=== PATIENT | male | born 1950 | race Two or more races ===

== ENCOUNTER 2018-02-23 15:14 | Inpatient (IN) | payer MEDICARE ==
--- NOTE | 2018-02-23 15:38 | ED Physician Chart ---
ED Chief Complaint/HPI - Patient Information Date Seen:: 02/23/18 Time Seen:: 15:25 Chief Complaint:: altered mental status History of Present Illness:: Family noted patient was not acting normally at his extended care facility. He was trying to write and what he wrote appeared to be scribbling. Accu-Chek at the facility was 32. Juice was given an patient's Accu-Chek increased of 50. Paramedics were called and patient started on a bag of D10. Repeat Accu-Chek by the paramedics was 205. Patient had a G-tube placed a few days ago at [facility] as he's been vomiting for at least the last 1 month. Historian:: EMS, Family Member Review:: Transfer documents Reviewed ED Review of Systems - Review of Systems General/Constitutional: No fever, No chills Skin: No skin lesions Head: No headache Eyes: No loss of vision ENT: No earache Neck: No neck pain Cardio Vascular: No chest pain GI: No nausea, No vomiting G/U: No dysuria Musculoskeletal: No bone or joint pain Endocrine: No polyuria Psychiatric: No prior psych history Allergic/Immuno: No urticaria Neurological: No syncope ED Past Medical History - Past Medical History Past Medical History: HTN, DM, Dyslipidemia, Other (mastoiditis; hyperlipidemia) Family History: Diabetes Melitus Social History: Other (formerly smoked marijuana and drank alcohol) Surgical History: PEG/GTube, other (mastoidectomy) Psychiatricy History: None Medication: Reviewed Family Medical History - Family Member Mother History Unknown: Yes Ethnicity: ED Physical Exam - Physical Examination General/Constitutional: Awake, Well-developed, well-nourished, Alert Other Gen/Cons comments:: Alert and oriented to correct month and year Head: Atraumatic Eyes: Lids, conjuctiva normal, PERRL Skin: Nl inspection, No rash, No skin lesions, No ecchymosis ENMT: External ears, nose nl Other ENMT comments:: Edentulous Neck: No nuchal rigidity Respiratory: Nl effort/Exclusion Other Respiratory comments:: 2 out of 4 harsh breath sounds Cardio Vascular: RRR, No murmur, gallop, rubs GI: No tenderness/rebounding/guarding, No organomegaly Extremities: Normal digits & nails Neuro/Psych: No focal deficits ED Labs/Radiology/EKG Results - Lab Results Results: Abnormal Lab Results 02/23/18 02/23/18 02/23/18 15:35 15:41 15:41 WBC 11.6 H RBC 4.93 Hgb 13.9 Hct 42.3 MCV 85.8 MCH 28.1 MCHC Differential 32.8 RDW 12.9 Plt Count 588 H MPV 6.2 Add Manual Diff YES Sodium 136 Potassium 3.3 L Chloride 96 L Carbon Dioxide 30.9 Anion Gap 12.4 BUN 19 Creatinine 1.2 Est GFR ( Amer) > 60.0 Est GFR (Non-Af Amer) > 60.0 BUN/Creatinine Ratio 15.8 Glucose 94 POC Glucose 77 Calcium 9.3 Magnesium 1.6 L Urine Source Urine Color Urine Clarity Urine pH Ur Specific [place] Urine Protein Urine Glucose (UA) Urine Ketones Urine Blood Urine Nitrate Urine Bilirubin Urine Urobilinogen Ur Leukocyte Esterase Urine RBC Urine WBC Ur Epithelial Cells Urine Bacteria 02/23/18 16:00 WBC RBC Hgb Hct MCV MCH MCHC Differential RDW Plt Count MPV Add Manual Diff Sodium Potassium Chloride Carbon Dioxide Anion Gap BUN Creatinine Est GFR ( Amer) Est GFR (Non-Af Amer) BUN/Creatinine Ratio Glucose POC Glucose Calcium Magnesium Urine Source RANDOM Urine Color YELLOW Urine Clarity CLEAR Urine pH 7.5 Ur Specific [place] 1.020 Urine Protein TRACE Urine Glucose (UA) NEGATIVE Urine Ketones NEGATIVE Urine Blood TRACE Urine Nitrate NEGATIVE Urine Bilirubin NEGATIVE Urine Urobilinogen 0.2 Ur Leukocyte Esterase NEGATIVE Urine RBC NONE SEEN Urine WBC 0-2 Ur Epithelial Cells NONE SEEN Urine Bacteria FEW - Radiology Results Results: Chest x-ray normal ED Assessment - Assessment General Assessment: Patient had a hypoglycemic reaction with his blood sugars as low as 32 so he needs admission. ED Septic Shock - . Is Septic Shock (SBP<90, OR Lactate>4 mmol\L) present?: No ED Reassessment (Disposition) - Reassessment Reassessment Condition:: Improved - Diagnosis Diagnosis:: Hypoglycemic reaction; diabetes hypokalemia; hypomagnesemia; - Patient Disposition Admitted to:: Med/Surg Spoke to:: Blanca Alejandro Admitting Medical Physician:: Blanca Alejandro Condition at Disposition:: Stable, Improved
[2018-02-23 15:47] LABS: BASOPHILE ABSOLUTE 0.1 Th/cumm (0-0.2); EOSINOPHILE ABSOLUTE 0.1 Th/cmm (0.1-0.4); HEMATOCRIT 42.3 % (41.0-60); HEMOGLOBIN 13.9 gm/dL (12-16); LYMPHOCYTE ABSOLUTE 0.5 Th/cmm (1.5-3.0); MEAN CELL VOLUME 85.8 fl (80-99); MEAN CORPUSCULAR HEMOGLOBIN 28.1 pg (27.0-31.0); MEAN CORPUSCULAR HGB CONC 32.8 pg (28.0-36.0); MEAN PLATELET VOLUME 6.2 fl; MONOCYTE ABSOLUTE 0.3 Th/cmm (0.3-1.0); NEUTROPHILE ABSOLUTE 10.6 Th/cmm (1.8-8.0); PLATELET COUNT 588 Th/cmm (150-400); RED BLOOD COUNT 4.93 Mil/cmm (3.80-5.80); RED CELL DISTRIBUTION WIDTH 12.9 % (11.5-20.0); WHITE BLOOD COUNT 11.6 Th/cmm (4.8-10.8)
[2018-02-23 16:03] LABS: ANION GAP 12.4 (7.0-16.0); BUN - UREA NITROGEN 19 mg/dL (7-25); CALCIUM SERUM 9.3 mg/dL (8.6-10.3); CARBON DIOXIDE 30.9 mEq/L (21.0-31.0); CHLORIDE 96 mEq/L (98-107); CREATININE - SERUM 1.2 mg/dL (0.7-1.3); GFR AFRICAN-AMERICAN > 60.0 ml/min (>90); GFR NON AFRICAN-AMERICAN > 60.0 ml/min; GLUCOSE 94 mg/dL (70-105); MAGNESIUM 1.6 mg/dL (1.9-2.7); POTASSIUM SERUM 3.3 mEq/L (3.5-5.1); SODIUM SERUM 136 mEq/L (136-145)
[2018-02-23 16:12] LABS: URINE SOURCE RANDOM
[2018-02-23 16:14] LABS: URINE BILIRUBIN NEGATIVE (NEGATIVE); URINE BLOOD TRACE (NEGATIVE); URINE GLUCOSE (UA) NEGATIVE (NEGATIVE); URINE KETONE NEGATIVE (NEGATIVE); URINE LEUKOCYTE ESTERASE NEGATIVE (NEGATIVE); URINE MICROSCOPIC INDICATED? YES; URINE NITRATE NEGATIVE (NEGATIVE); URINE PH 7.5 (4.6 - 8.0); URINE PROTEIN TRACE mg/dL (NEGATIVE); URINE UROBILINOGEN 0.2 E.U./dL (0.2 - 1.0)
[2018-02-23 16:30] LABS: URINE BACTERIA FEW /hpf (NONE SEEN); URINE CLARITY CLEAR (CLEAR); URINE COLOR YELLOW; URINE EPITHELIAL CELLS NONE SEEN /lpf (FEW); URINE RBC NONE SEEN /hpf (0-5); URINE WBC 0-2 /hpf (0-5)
[2018-02-23 17:02] LABS: BAND NEUTROPHILE 0 % (0-10); BASOPHIL 0 % (0-3); EOSINOPHIL 0 % (0-5); LYMPHOCYTE 5 % (20-50); MONOCYTE 3 % (2-10); NEUTROPHILS 92 % (40-80)
[2018-02-23] MEDS ORDERED: Dextrose 10% 1,000 ML IV SCH (18:36)
[2018-02-23] MEDS: INSULIN HUMAN REGULAR 100 UNITS/ML UNIT SUBQ SCH (19:53)
[2018-02-23] MEDS ORDERED: Dextrose 10% 1,000 ML IV ONE (21:06)
[2018-02-23] MEDS ORDERED: Mag Sulfate 2gm/50mL Premix 2 GM/50 ML BAG IV ONE (22:45)
[2018-02-24] MEDS: INSULIN HUMAN REGULAR 100 UNITS/ML UNIT SUBQ SCH ×2 (00:35→06:19)
[2018-02-24 06:01] LABS: MEAN CELL VOLUME 85.6 fl (80-99); MEAN CORPUSCULAR HEMOGLOBIN 28.8 pg (27.0-31.0); MEAN CORPUSCULAR HGB CONC 33.7 pg (28.0-36.0); MEAN PLATELET VOLUME 6.6 fl; RED BLOOD COUNT 3.53 Mil/cmm (3.80-5.80); RED CELL DISTRIBUTION WIDTH 13.1 % (11.5-20.0); WHITE BLOOD COUNT 14.6 Th/cmm (4.8-10.8)
[2018-02-24 06:03] LABS: HEMATOCRIT 30.2 % (41.0-60); HEMOGLOBIN 10.2 gm/dL (12-16); PLATELET COUNT 447 Th/cmm (150-400)
[2018-02-24 06:07] LABS: ANION GAP 10.2 (7.0-16.0); BUN - UREA NITROGEN 18 mg/dL (7-25); CALCIUM SERUM 8.6 mg/dL (8.6-10.3); CARBON DIOXIDE 30.9 mEq/L (21.0-31.0); CHLORIDE 98 mEq/L (98-107); CHOLESTEROL 83 mg/dL (<200); CREATININE - SERUM 1.2 mg/dL (0.7-1.3); GFR AFRICAN-AMERICAN > 60.0 ml/min (>90); GFR NON AFRICAN-AMERICAN > 60.0 ml/min; GLUCOSE 98 mg/dL (70-105); HDL -HIGH DENSITY LIPOPROTEIN 22 mg/dL (23-92); POTASSIUM SERUM 3.1 mEq/L (3.5-5.1); SODIUM SERUM 136 mEq/L (136-145); TRIGLYCERIDES 87 mg/dL (<150)
[2018-02-24] MEDS ORDERED: Dextrose 10% 1,000 ML IV SCH (07:15)
[2018-02-24 07:32] LABS: BAND NEUTROPHILE 2 % (0-10); NEUTROPHILS 84 % (40-80)
[2018-02-24 07:33] LABS: LYMPHOCYTE 12 % (20-50); MONOCYTE 2 % (2-10)
--- NOTE | 2018-02-24 08:44 | Diagnostic Imaging Report ---
Portable chest x-ray HISTORY: Cough The overall heart size appears normal. Atherosclerotic calcification seen in the aorta. No acute focal pulmonary processes. IMPRESSION: 1. No acute abnormalities 2. Atherosclerotic vascular changes
[2018-02-24] MEDS ORDERED: INSULIN ASPART SLIDING SCALE 100 UNITS/ML UNIT SUBQ SCH (10:30)
[2018-02-24] MEDS ORDERED: Acetaminophen 500 MG TAB GT PRN (15:12)
[2018-02-24] MEDS ORDERED: Potassium Chloride Elixir 20 mEq /15 mL UDC GT ONE (15:23)
[2018-02-24] MEDS: INSULIN ASPART SLIDING SCALE 100 UNITS/ML UNIT SUBQ SCH ×2 (16:29→21:58)
[2018-02-24] MEDS: Dextrose 5% 1,000 ML IV SCH (16:34)
[2018-02-25] MEDS: INSULIN ASPART SLIDING SCALE 100 UNITS/ML UNIT SUBQ SCH ×4 (04:47→20:53)
[2018-02-25 05:46] LABS: % BASOPHILS 0.4 % (0.0-2.0); % EOSINOPHILS 1.1 % (0.0-5.0); % LYMPHOCYTES 9.7 % (20.0-50.0); % MONOCYTES 4.4 % (2.0-10.0); % NEUTROPHILS 84.4 % (40.0-80.0); EOSINOPHILE ABSOLUTE 0.1 Th/cmm (0.1-0.4); HEMATOCRIT 29.9 % (41.0-60); HEMOGLOBIN 9.8 gm/dL (12-16); LYMPHOCYTE ABSOLUTE 1.1 Th/cmm (1.5-3.0); MEAN CELL VOLUME 84.9 fl (80-99); MEAN CORPUSCULAR HEMOGLOBIN 27.9 pg (27.0-31.0); MEAN CORPUSCULAR HGB CONC 32.8 pg (28.0-36.0); MEAN PLATELET VOLUME 6.5 fl; MONOCYTE ABSOLUTE 0.5 Th/cmm (0.3-1.0); NEUTROPHILE ABSOLUTE 9.8 Th/cmm (1.8-8.0); PLATELET COUNT 483 Th/cmm (150-400); RED BLOOD COUNT 3.52 Mil/cmm (3.80-5.80); RED CELL DISTRIBUTION WIDTH 12.6 % (11.5-20.0); WHITE BLOOD COUNT 11.5 Th/cmm (4.8-10.8)
[2018-02-25 06:13] LABS: ALB/GLOB RATIO 0.9 (1.0-1.8); ALBUMIN 2.6 gm/dL (4.2-5.5); ALKALINE PHOSPHATASE 116 U/L (34-104); ANION GAP 11.5 (7.0-16.0); BILIRUBIN,TOTAL 0.6 mg/dL (0.3-1.0); BUN - UREA NITROGEN 19 mg/dL (7-25); CALCIUM SERUM 8.3 mg/dL (8.6-10.3); CARBON DIOXIDE 30.2 mEq/L (21.0-31.0); CHLORIDE 98 mEq/L (98-107); CREATININE - SERUM 1.3 mg/dL (0.7-1.3); GFR AFRICAN-AMERICAN > 60.0 ml/min (>90); GFR NON AFRICAN-AMERICAN 58.5 ml/min; GLUCOSE 130 mg/dL (70-105); MAGNESIUM 1.8 mg/dL (1.9-2.7); POTASSIUM SERUM 3.7 mEq/L (3.5-5.1); SGOT 16 U/L (13-39); SGPT/ALT 19 U/L (7-52); SODIUM SERUM 136 mEq/L (136-145); TOTAL PROTEIN,SERUM 5.5 gm/dL (6.0-8.3)
[2018-02-25] MEDS: Vitamin B Complex w/Vitamin C Tab GT SCH (08:56)
--- NOTE | 2018-02-25 10:35 | Diagnostic Imaging Report ---
Cervical spine (5 views) HISTORY: Pain Views are limited due to difficulty in patient positioning. Suboptimal delineation and visualization of C6 and C7. Alignment appears to be normal. There appears to be narrowing the C5-6 disc space. The C6-7 interspace is not well seen. Spur formation noted off the anterior margin of the body of C5. Suboptimal delineation the neural foramina due to difficulty in positioning. Vascular calcification noted. IMPRESSION 1. Suboptimal/limited exam particularly at the C5-6 and C6-7 levels 2. Degenerative changes 3. No definite acute abnormalities 4. Atherosclerotic vascular changes
[2018-02-25] MEDS: Dextrose 5% 1,000 ML IV SCH (15:59)
--- NOTE | 2018-02-25 22:38 | History & Physical ---
ADMIT DATE: 02/23/2018 REASON FOR ADMISSION: Hypoglycemia. HISTORY OF PRESENT ILLNESS: A 67-year-old gentleman brought to the Emergency Room due to persistent hypoglycemia, is [facility] patient, insulin-dependent diabetes mellitus, on 70/30 insulin 50 units in the morning and a sliding scale. The patient at present time complaining of headache and the posterior neck pain as soon as he wakes up with some nausea. Once he takes the medication he gets better. The patient started the similar headache for past 3 weeks. The patient recently diagnosed with mastoiditis and was given IV antibiotic for it. The patient states that he was also started on Imitrex and Inderal at a [facility] facility. The patient's gastric residue also increased for random more than 150 mL at present time. The patient denies any constipation or diarrhea. No abdominal distention or pain. No UTI symptomatology. No hematuria, no melena, no bright red blood per rectum, no leg swelling or joint swelling, no rashes. No new numbness, weakness in extremities. PAST MEDICAL HISTORY: Significant for hypertension with chronic kidney disease, stage III, recent admission at the [facility] due to intractable nausea, vomiting and acute renal failure with normal creatinine around 1 and at Emergency Room at [facility] on 02/08/2018 creatinine was 3. The patient also has a history of hyperlipidemia and a J-tube placement. CURRENT MEDICATIONS: Includes at the prison facility: 70/30 insulin 50 units in the morning and a sliding scale, fleet enema p.r.n., Dulcolax suppository p.r.n., milk of magnesia 30 mL via J-tube if no bowel movement for 3 days, Pepcid 20 mg via G-tube twice a day, Tylenol 650 mg q. 6 hours p.r.n., propranolol 20 mg 3 times a day, clonidine 0.1 mg q. 6 hours p.r.n. for systolic blood pressure over 110, Imitrex 50 mg 1 tablet q. 6 hours p.r.n. for headache, Lipitor 40 mg once a day for hyperlipidemia, Zofran 4 mg q. 8 hours p.r.n., Reglan 10 mg 3 times a day for gastroparesis, Nephro vitamin 1 tablet once a day, Norvasc 10 mg once a day. The patient was on a routine clonidine 0.1 mg q. 6 hours and hold for systolic blood pressure less than 110. SOCIAL HISTORY: Noncontributory. REVIEW OF SYSTEMS: See the history of present illness. PHYSICAL EXAMINATION: VITAL SIGNS: Height 1.8 meter, weight 68 kg and BMI 20.9. VITAL SIGNS: Temperature 98.2, afebrile, pulse 68, respiratory rate 18, blood pressure 124/63 and oxygen saturation 94%. HEENT: Otherwise, unremarkable. No icterus, no pallor. Mucosa is moist. NECK: Supple. No JVD, no bruit, no lymphadenopathy. LUNGS: Clear. CARDIOVASCULAR: S1 and S2. Normal limit. ABDOMEN: Benign exam. No distention. J-tube site is normal. Bowel sound is active. No rebound, no guarding, no masses, no CVA tenderness. X-ray exam normal. EXTREMITIES: Dorsalis pedis palpable. No leg edema noted. CENTRAL NERVOUS SYSTEM: Cranial nerves intact. Nonfocal. LABORATORY TESTS: TSH normal at 3.8, cholesterol 83, triglycerides 87, LDL 54, HDL 22 and albumin decreased at 2.6. Chest x-ray unremarkable on 02/23/2018. His culture revealed MRSA. WBC 14.6 on admission and repeat one is 11.5, MCV 85, hemoglobin 9.8, platelet count of 183,000, neutrophil 84. Sodium 136, potassium 3.7, chloride 98, bicarbonate 30, BUN 19, creatinine 1.3 and glucose 130. ASSESSMENT AND PLAN: 1. Persistent hypoglycemia, most likely secondary to gastroparesis with the decreased p.o. intake and use of 70/30 insulin 50 units per day. On top of it, the patient is on Inderal 20 mg t.i.d., which blunt the hypoglycemic reaction. 2. Insulin-dependent diabetes mellitus. Will check hemoglobin A1c. Continue IV fluid with D5W at 30 mL per hour and start J-tube feeding. Gastroparesis permitted. 3. Gastroparesis with increased residue of 150 mL. At present time, we will hold the feeding for 2 hours and then resume again. 4. Hyperlipidemia. Cholesterol is 83, so decreased Lipitor from 40 to 10 mg. 5. Hypertension with chronic kidney disease stage III in addition to acute renal failure. We will monitor CMP and continue with Norvasc 10 mg once a day and hold Inderal due to blunting of hypoglycemic reaction and clonidine only for p.r.n. use. 6. Status post mastoiditis. We will check C-spine x-rays. 7. Posterior neck pain going to the posterior occiput, pain control. 8. Gastroparesis. We will start the patient on Compazine 25 mg suppository twice a day, Reglan 5 mg 3 times a day and Zofran as needed. 9. Malnutrition, protein-calorie, moderate albumin 2.6. Continue J-tube feeding. 10. Status post J-tube. 11. 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 12. Anemia of chronic disease. We will obtain GI consult as patient also has gastroparesis and I increase the residue. Once the patient improved will able to discharge back on [facility]. Meanwhile, we will give a Corpak and physical therapy for the neck pain going to the head and hold Imitrex as it has many side effects in this 67-year-old gentleman. JOB# [id number]
[2018-02-26] MEDS: INSULIN ASPART SLIDING SCALE 100 UNITS/ML UNIT SUBQ SCH ×3 (03:35→15:46)
[2018-02-26 06:34] LABS: % BASOPHILS 0.3 % (0.0-2.0); % EOSINOPHILS 1.4 % (0.0-5.0); % LYMPHOCYTES 8.7 % (20.0-50.0); % MONOCYTES 4.3 % (2.0-10.0); % NEUTROPHILS 85.3 % (40.0-80.0); EOSINOPHILE ABSOLUTE 0.2 Th/cmm (0.1-0.4); HEMATOCRIT 29.9 % (41.0-60); HEMOGLOBIN 9.9 gm/dL (12-16); MEAN CELL VOLUME 86.1 fl (80-99); MEAN CORPUSCULAR HEMOGLOBIN 28.5 pg (27.0-31.0); MEAN PLATELET VOLUME 6.5 fl; MONOCYTE ABSOLUTE 0.5 Th/cmm (0.3-1.0); NEUTROPHILE ABSOLUTE 9.8 Th/cmm (1.8-8.0); PLATELET COUNT 493 Th/cmm (150-400); RED BLOOD COUNT 3.47 Mil/cmm (3.80-5.80); RED CELL DISTRIBUTION WIDTH 12.4 % (11.5-20.0); WHITE BLOOD COUNT 11.5 Th/cmm (4.8-10.8)
[2018-02-26 06:48] LABS: ALB/GLOB RATIO 0.9 (1.0-1.8); ALBUMIN 2.7 gm/dL (4.2-5.5); ALKALINE PHOSPHATASE 126 U/L (34-104); AMYLASE SERUM 75 U/L (29-103); ANION GAP 9.8 (7.0-16.0); BILIRUBIN,TOTAL 0.6 mg/dL (0.3-1.0); BUN - UREA NITROGEN 16 mg/dL (7-25); CALCIUM SERUM 8.3 mg/dL (8.6-10.3); CARBON DIOXIDE 30.6 mEq/L (21.0-31.0); CHLORIDE 96 mEq/L (98-107); CREATININE - SERUM 1.2 mg/dL (0.7-1.3); GFR AFRICAN-AMERICAN > 60.0 ml/min (>90); GFR NON AFRICAN-AMERICAN > 60.0 ml/min; GLUCOSE 161 mg/dL (70-105); LIPASE 117 U/L (11-82); POTASSIUM SERUM 3.4 mEq/L (3.5-5.1); SGOT 18 U/L (13-39); SGPT/ALT 19 U/L (7-52); SODIUM SERUM 133 mEq/L (136-145); TOTAL PROTEIN,SERUM 5.8 gm/dL (6.0-8.3); URIC ACID 2.5 mg/dL (4.4-7.6)
[2018-02-26] MEDS ORDERED: Diatrizoate Meglumine/Diatri 30 mL Sol PO ONE (07:51)
[2018-02-26] MEDS ORDERED: Atorvastatin Calcium 10 MG TAB GT SCH (09:00)
--- NOTE | 2018-02-26 09:14 | Diagnostic Imaging Report ---
Upper GI enthesis limited) HISTORY: Gastrostomy tube placement Water-soluble contrast instilled through patient's gastrostomy tube. Exam demonstrates opacification of the gastric lumen. IMPRESSION: 1. Confirmation of gastrostomy tube within the gastric lumen.
[2018-02-26] MEDS: Vitamin B Complex w/Vitamin C Tab GT SCH (09:34)
[2018-02-26] MEDS: POLYETHYLENE GLYCOL 3350 17 GM PACK PO SCH ×2 (09:35→17:00)
[2018-02-26] MEDS ORDERED: MINERAL OIL ENEMA 135 ML BOTTLE RC ONE (11:37)
--- NOTE | 2018-02-27 04:21 | Consultation ---
DATE OF CONSULTATION: 02/26/2018 INPATIENT GI CONSULTATION CONSULTING PHYSICIAN: Dr. Noé Cooper. REASON FOR CONSULTATION: Nausea and vomiting, J-tube feeding. HISTORY OF PRESENT ILLNESS: The patient is a 67-year-old male with past medical history significant for J-tube dependent feeding, type 2 diabetes, chronic kidney disease who also with chronic headaches, who was admitted to the hospital with persistent hypoglycemia, nausea and vomiting. Apparently at the patient's nursing facility, he has been having hypoglycemia, which has been unexplained, although the patient does take insulin every day on a sliding scale as well as regular dosing. Additionally, there is a report that he has been having 150 mL of gastric residual with some vomiting episodes and thus the patient was admitted to the hospital. At this point, the patient is unable to tell me when this J-tube was placed and generally does not have any nausea and vomiting at the current moment. He has not had any bowel movements. PAST MEDICAL HISTORY: Chronic kidney disease, type 2 diabetes, hypertension, dysphagia with a J-tube. PAST SURGICAL HISTORY: J-tube placement. Other abdominal surgery history is not known. FAMILY HISTORY: Noncontributory. SOCIAL HISTORY: The patient denies drinking or using illicit drugs. ALLERGIES: There are no known drug allergies. REVIEW OF SYSTEMS: A 12-point review of systems as per the patient negative except for the pertinent positives mentioned in history of present illness. CURRENT MEDICATIONS: Include Tylenol, amlodipine, Lipitor, IV fluid, Pepcid, insulin, Reglan, Zofran, Compazine, vitamin B complex. PHYSICAL EXAMINATION: VITAL SIGNS: Blood pressure is 124/60, pulse 76 beats per minute, temperature 97.8, respiration is 18. GENERAL: The patient is seen at 30 degrees in bed. He is alert and oriented x 3. He is in no apparent distress. HEAD, EARS, EYES, NOSE, AND THROAT: Normocephalic, atraumatic. Pupils are equal and reactive to light. Extraocular muscles appear to be intact. Dry mucous membranes. NECK: Supple. There is no JVD or thyromegaly. CHEST: There are crackles at the bases. CARDIOVASCULAR: S1, S2 are present, regular rate and rhythm. ABDOMEN: There is a G-tube present clean, dry and intact. There is no guarding or rebound or pain on palpation. EXTREMITIES: 1+ pitting edema bilaterally. Pulses are not present. SKIN: There is no obvious jaundice. LABORATORY DATA: White blood cell count 11.5, hemoglobin is 9.9, platelet count is 493. Sodium 133, BUN 16, creatinine 1.2, total bilirubin 0.6, AST 18, ALT 19, alkaline phosphatase 126, lipase 117. No abdominal imaging has yet been performed. IMPRESSION: This is a 67-year-old male with type 2 diabetes, on insulin. J-tube dependent feeding, chronic kidney disease, headaches, admitted to the hospital with persistent hypoglycemia, nausea and vomiting and headaches. 1. J-tube feeding. 2. Reported history of high gastric residual. 3. Hypoglycemia episodes. 4. Nausea and vomiting. 5. Chronic kidney disease. 6. Headaches. 7. Type 2 diabetes. DISCUSSION: At this point, I am not exactly clear how the patient could be having high gastric residuals if he truly has a J-tube feeding unless there is reflux back into the stomach where if the tube itself is malpositioned or if this is indeed only a G-tube. The patient is unable to give me a clear history on this and thus we can get a KUB with Gastrografin injection to try to confirm where the actual end of this tube is. The nurse is reporting that there is no gastric residual since the patient has been admitted and he has been tolerating his feedings well, which is encouraging. Even if the patient has gastroparesis, the idea of a J-tube would be to totally bypass the stomach and thus bypassed gastroparesis entirely. One thing that may be affecting nausea and vomiting even in a J-tube situation is fecal impaction or ileus and thus a KUB can also help look for this. In the meantime, we will give the patient an enema and start some laxatives as the patient that is mostly sedentary should be on a bowel regimen, which can help prevent the development of impaction ileus and constipation. RECOMMENDATIONS: 1. We will try to confirm where this J-tube actually is with a KUB and Gastrografin injection as well as look for any evidence of ileus impaction. 2. Fleet enema today as well as the initiation of MiraLax. 3. Hypoglycemia is likely due to the patient receiving too much insulin for the amount of feeding that he is getting and this can be worked out with an wrister with the primary insulin should be adjusted accordingly. 4. Continue to check residuals every 6 hours from the G-port and hold the feedings if this is greater than 100 mL. 5. Flush the G and J-port with 100 mL of water every 6 hours. We will continue to follow. Thank you for allowing us to participate in his care. Please call with any further questions. JOB# [id number]
--- NOTE | 2018-02-27 08:05 | Diagnostic Imaging Report ---
Exam: KUB of the abdomen. HISTORY: Constipation. Fine: Portable examination of the abdomen at 1005 reviewed. The study demonstrates residual contrast material the rectum and left colon. Residual contrast is noted in the stomach, gastrostomy tube is present. There is no evidence of fecal impaction. IMPRESSION: Nonspecific gas bowel pattern, no evidence for fecal impaction.
[2018-02-28 01:14] LABS: HEP B SURFACE AG QL Negative (Negative)
--- NOTE | 2018-02-28 23:26 | Discharge Summary ---
DATE OF DISCHARGE: 02/26/2018 FINAL DIAGNOSES: 1. Hypoglycemia, now resolved, most likely secondary to 70/30 insulin 50 units once a day, too much for the patient's J-tube feeding in this gastroparesis patient and also on Inderal 20 mg b.i.d. that dampened hypoglycemic reaction and also the patient on Imitrex 50 mg q. 6 hours for the chronic posterior neck pain going to the head. 2. Status post J-tube placements. KUB and a Gastrografin upper GI series confirmed placement into the J-tube site. 3. Gastroparesis. Continue with J-tube feeding and Compazine 25 mg suppository twice a day, Zofran and Reglan as needed to control the symptoms and also flush G-port and J-port with 100 mL of water q. 6 hours, aspirate a G-tube port and if more than 100 mL residue hold the feeding. 4. Insulin-dependent diabetes mellitus. Discontinue 70/30 insulin and only give Accu-Chek and sliding scale q. 6 hours basis and go from there. 5. Hyperlipidemia. Continue current medication. 6. Hypertension with chronic kidney disease, stage III. Continue the current medication. 7. Status post mastoiditis, the patient finished the antibiotic. 8. Chronic protein-calorie malnutrition. HOSPITAL COURSE AND IMPORTANT LABS: A 67-year-old gentleman, resident of [place] [facility] facility [facility] and last 3 weeks complaining of pain in the posterior neck radiating in the morning to the head part and the patient was started on Inderal and Imitrex and the patient also have a J-tube placed for gastroparesis symptomatology and getting feeding through it. The patient found to be in a persistent hypoglycemia, so transferred to the Emergency Room where the patient started on D10. Now, the patient is improved and no further hypoglycemia noted in hospital, so the patient switched to the D5W at 30 mL. GI consult obtained and upper GI series revealed a J-tube in the correct position and a KUB revealed no fecal impaction. The patient was given MiraLax and Dulcolax suppository and a Fleet enema prior to discharging back to the nursing facility after stopping Imitrex, Inderal and 70/30 insulin. The patient will get Compazine suppository 25 mg twice a day, Reglan and Zofran as needed for nausea control and aspiration of a G-tube and hold feeding if residue more than 100 mL and flushing G-port and J-port with 100 mL of water q. 6 hourly. [facility]# [id number]
== END 2018-02-26 20:10 | DRG 638 ==
LOC: ER 15:14 → MSI 17:53
PROVIDERS: ADMIT Internal Medicine; ATTEND Internal Medicine
DX: E11.649 Type 2 diabetes mellitus with hypoglycemia without coma (principal); E46 Unspecified protein-calorie malnutrition; N17.9 Acute kidney failure, unspecified; E78.5 Hyperlipidemia, unspecified; E87.6 Hypokalemia; E83.42 Hypomagnesemia; N18.3 Chronic kidney disease, stage 3 (moderate); I12.9 Hypertensive chronic kidney disease with stage 1 through stage 4 chronic kidney disease, or unspecified chronic kidney disease; E11.22 Type 2 diabetes mellitus with diabetic chronic kidney disease; E11.43 Type 2 diabetes mellitus with diabetic autonomic (poly)neuropathy; K31.84 Gastroparesis; D63.8 Anemia in other chronic diseases classified elsewhere; Z68.23 Body mass index [BMI] 23.0-23.9, adult; Z22.322 Carrier or suspected carrier of Methicillin resistant Staphylococcus aureus; Z83.3 Family history of diabetes mellitus; Z93.1 Gastrostomy status; Z79.4 Long term (current) use of insulin
CPT/HCPCS: 36415-UA; 71045-TC; 72050-TC; 74000-TC; 80048-TC; 80053-TC; 80061-TC; 81001-TC; 82150-TC; 82948-90; 83036-90; 83690-TC; 83735-TC; 84443-TC; 84550-TC; 85007-TC; 85025-TC; 86803-90; 87340-90; J1815; J3475; J7070; Z7610